=== PATIENT | male | born 1995 | race Caucasian/White ===

== ENCOUNTER 2017-04-27 15:33 | Emergency (ER) | payer OTHER ==
[2017-04-27 15:46] VITALS: BP 126/71
--- NOTE | 2017-04-27 16:12 | UC ---
Skin Complaint HPI - HPI Summary HPI Summary: Found tick on abdomen near umbilicus 5 days ago and pulled off. Not sure how long it was on there, but pt reports he changes clothes and showers daily. No pain, swelling, or redness at the area. - History of Current Complaint Chief Complaint: UCSkin Time Seen by Provider: 04/27/17 15:46 Stated Complaint: TICK BITE Hx Obtained From: Patient Onset/Duration: Sudden Onset Skin Exposure Onset/Duration: Days Ago Onset Severity: Mild Current Severity: Mild Location: Discrete Aggravating Factor(s): Nothing Alleviating Factor(s): Nothing Associated Signs & Symptoms: Positive: Negative Related History: Insect Bite/Sting - Allergy/Home Medications Allergies/Adverse Reactions: Allergies Allergy/AdvReac Type Severity Reaction Status Date / Time Tide Laundry Detergent Allergy Hives Uncoded 04/27/17 15:46 Review of Systems Constitutional: Negative Skin: Other - tick bite Eyes: Negative ENT: Negative Respiratory: Negative Cardiovascular: Negative Gastrointestinal: Negative Genitourinary: Negative Motor: Negative Neurovascular: Negative Musculoskeletal: Negative Neurological: Negative Psychological: Negative Is Patient Immunocompromised?: No All Other Systems Reviewed And Are Negative: Yes PMH/Surg Hx/FS Hx/Imm Hx Previously Healthy: Yes - Surgical History Surgical History: None Surgery Procedure, Year, and Place: Foot age 11 - Family History Known Family History: Positive: Hypertension - Social History Lives: With Family Alcohol Use: None Substance Use Type: None Smoking Status (MU): Never Smoked Tobacco Physical Exam Triage Information Reviewed: Yes Appearance: Well-Appearing, No Pain Distress, Thin Vital Signs: Initial Vital Signs Temp 98.5 F 04/27/17 15:41 Pulse 73 04/27/17 15:41 Resp 16 04/27/17 15:41 BP 126/71 04/27/17 15:41 Pulse Ox 100 04/27/17 15:41 Vital Signs Reviewed: Yes Eye Exam: Normal Eyes: Positive: Conjunctiva Clear ENT Exam: Normal ENT: Positive: Normal ENT inspection, Hearing grossly normal, Pharynx normal, TMs normal Dental Exam: Normal Neck exam: Normal Neck: Positive: Supple, Nontender, No Lymphadenopathy Respiratory Exam: Normal Respiratory: Positive: Chest non-tender, Lungs clear, Normal breath sounds, No respiratory distress, No accessory muscle use Cardiovascular Exam: Normal Cardiovascular: Positive: RRR, No Murmur Abdominal Exam: Normal Musculoskeletal Exam: Normal Neurological Exam: Normal Neurological: Positive: Alert Psychological Exam: Normal Skin Exam: Other - tick bite site benign, only very small red PW -- no extravasated blood or bruising or streaking. Course/Dx - Diagnoses Provider Diagnoses: tick bite Discharge - Discharge Plan Condition: Stable Disposition: HOME Patient Education Materials: Tick Bite (ED) Referrals: J Luis Townsend MD [Medical Doctor] - If Needed Additional Instructions: Your bite appears to be low-risk; you are also outside the 72-hour window for prophylactic antibiotics. Though you are likely to be fine without tick-borne illness, please note any new symptoms over the next month. Unexplained fever, spreading redness, headache, or sudden joint aches can all be signs of acute lyme. Usually symptoms show up 1-2 weeks after a tick bite, but it can be as late as a month later.
== END 2017-04-27 16:10 | disposition home or self-care (01) ==
LOC: UCEAST 15:33
DX: S30.861A Insect bite (nonvenomous) of abdominal wall, initial encounter (principal); W57.XXXA Bitten or stung by nonvenomous insect and other nonvenomous arthropods, initial encounter; Y93.9 Activity, unspecified; Y92.9 Unspecified place or not applicable
CPT/HCPCS: 99201; G0463

== ENCOUNTER 2019-08-16 14:27 | Emergency (ER) | payer OTHER ==
[2019-08-16 14:43] VITALS: BP 129/81
--- NOTE | 2019-08-16 14:56 | UC ---
Dental HPI - HPI Summary HPI Summary: 24 year old male comes in with a chief complaint of right lower dental pain. Patient's had a bad right lower molar tooth for a long time. Pain started increasing in the last couple of days and overnight he's got some swelling in the jaw. No fevers or chills. He has taken [id number] pain relievers which helped some. Last time he saw a dentist was 8 months ago and they recommended removal of the tooth. - History of Current Complaint Chief Complaint: UCDentalProblem Stated Complaint: TOOTHACHE Time Seen by Provider: 08/16/19 14:29 Pain Intensity: 7 - Allergies/Home Medications Allergies/Adverse Reactions: Allergies Allergy/AdvReac Type Severity Reaction Status Date / Time Tide Laundry Detergent Allergy Hives Uncoded 08/16/19 14:37 Home Medications: Home Medications Amoxicillin PO (*) [Amoxicillin 500 MG CAP*] 500 mg PO TID #30 cap 08/16/19 [Rx] Aspirin TAB* [Aspirin 325 MG TAB*] 650 mg PO Q6H PRN 08/16/19 [History Confirmed 08/16/19] PMH/Surg Hx/FS Hx/Imm Hx Previously Healthy: Yes - Surgical History Surgical History: Yes Surgery Procedure, Year, and Place: Foot age 11 - Family History Known Family History: Positive: Hypertension - Social History Alcohol Use: Weekly Substance Use Type: None Smoking Status (MU): Former Smoker Review of Systems All Other Systems Reviewed And Are Negative: Yes Constitutional: Positive: Negative Skin: Positive: Negative Eyes: Positive: Negative ENT: Positive: Dental Pain Respiratory: Positive: Negative Cardiovascular: Positive: Negative Gastrointestinal: Positive: Negative Motor: Positive: Negative Neurovascular: Positive: Negative Musculoskeletal: Positive: Negative Neurological/Mental Status: Positive: Negative Psychological: Positive: Negative Is Patient Immunocompromised?: No Physical Exam Triage Information Reviewed: Yes Appearance: Well-Appearing, No Pain Distress, Well-Nourished Vital Signs: Initial Vital Signs Temp 98.6 F 08/16/19 14:42 Pulse 80 08/16/19 14:42 Resp 16 08/16/19 14:42 BP 129/81 08/16/19 14:42 Pulse Ox 98 08/16/19 14:42 Vital Signs Reviewed: Yes Eye Exam: Normal Eyes: Positive: Conjunctiva Clear ENT: Positive: Pharynx normal Dental: Positive: Gross Decay/Caries @ - Right lower molar, Abscess @ - Right lower jaw Neck: Positive: Supple Respiratory: Positive: No respiratory distress Musculoskeletal: Positive: Strength Intact, ROM Intact Neurological: Positive: Alert, Muscle Tone Normal Psychological: Positive: Age Appropriate Behavior Skin Exam: Normal Dental Complaint Course/Dx - Differential Dx/Diagnosis Provider Diagnosis: Dental abscess Discharge ED - Sign-Out/Discharge Documenting (check all that apply): Patient Departure All imaging exams completed and their final reports reviewed: No Studies - Discharge Plan Condition: Stable Disposition: HOME Prescriptions: Amoxicillin PO (*) [Amoxicillin 500 MG CAP*] 500 mg PO TID #30 cap Patient Education Materials: Dental Abscess (ED) Referrals: [facility] [Outside] Additional Instructions: FOLLOW UP WITH YOUR DENTIST. GET REEVALUATED IF NOT IMPROVED OR WORSE OR ANY QUESTIONS OR CONCERNS. - Billing Disposition and Condition Condition: STABLE Disposition: Home
== END 2019-08-16 14:56 | disposition home or self-care (01) ==
LOC: UCEAST 14:27
DX: K04.7 Periapical abscess without sinus (principal); K02.9 Dental caries, unspecified; Z91.048 Other nonmedicinal substance allergy status; Z87.891 Personal history of nicotine dependence
CPT/HCPCS: 99212; G0463